=== PATIENT | male | born 1985 | race Caucasian/White ===

== ENCOUNTER 2019-06-04 19:57 | Emergency (ER) | payer SELFPAY ==
[2019-06-04 20:11] VITALS: BP 131/74
[2019-06-04] MEDS ORDERED: Tobramycin 0.3% OPHTH.SOL* 5 ML BOT (regular eye drops) BOTH EYES ONE ×2 (20:25→20:35)
[2019-06-04] MEDS ORDERED: predniSONE TAB* 20 MG PO ONE (20:25)
[2019-06-04] MEDS ORDERED: Azithromycin TAB* 250 MG PO ONE (20:26)
--- NOTE | 2019-06-04 20:29 | UC ---
Eye Complaint HPI - HPI Summary HPI Summary: 34-year-old male comes in with a chief complaint of bilateral eye redness and irritation and crusting. Been going on for about 2 weeks. He does have some rhinorrhea with green rhinorrhea. Some chest congestion. Does have a history of allergy to cats and he has been around cats last 2 weeks. He has been using [id number] antihistamines with very little relief. No fevers or chills. - History of Current Complaint Chief Complaint: UCEye Stated Complaint: EYE IRRITATION Time Seen by Provider: 06/04/19 20:19 Pain Intensity: 3 - Allergies/Home Medications Allergies/Adverse Reactions: Allergies Allergy/AdvReac Type Severity Reaction Status Date / Time cat dander Allergy RESPIRATORY Verified 06/04/19 20:11 DIFFICULTY nut - unspecified Allergy Anaphylatic Verified 06/04/19 20:11 Shock Penicillins Allergy Anaphylatic Verified 06/04/19 20:11 Shock Home Medications: Home Medications Cetirizine* [ZyrTEC 10 MG TAB*] 10 mg PO DAILY PRN 06/04/19 [History Confirmed 06/04/19] Fexofenadine (NF) [Irina (NF)] 60 mg PO PRN 06/04/19 [History] LoraTADine TAB(NF) [Claritin 10 MG TAB(NF)] 10 mg PO DAILY PRN 06/04/19 [ History Confirmed 06/04/19] PMH/Surg Hx/FS Hx/Imm Hx Previously Healthy: Yes - Surgical History Surgical History: Yes Surgery Procedure, Year, and Place: ORAL SURGERY - Family History Known Family History: Positive: Non-Contributory - Social History Alcohol Use: None Substance Use Type: None Smoking Status (MU): Current Some Day Smoker Review of Systems All Other Systems Reviewed And Are Negative: Yes Constitutional: Positive: Negative Skin: Positive: Negative Eyes: Positive: Drainage, Eye Redness ENT: Positive: Nasal Discharge, Sinus Congestion Respiratory: Positive: Other - SEE HPI Cardiovascular: Positive: Negative Gastrointestinal: Positive: Negative Motor: Positive: Negative Neurovascular: Positive: Negative Musculoskeletal: Positive: Negative Neurological: Positive: Negative Psychological: Positive: Negative Is Patient Immunocompromised?: No Physical Exam Triage Information Reviewed: Yes Appearance: No Pain Distress, Well-Nourished, Ill-Appearing - MILD Vital Signs: Initial Vital Signs Temp 98.1 F 06/04/19 20:08 Pulse 72 06/04/19 20:08 Resp 16 06/04/19 20:08 BP 131/74 06/04/19 20:08 Pulse Ox 97 06/04/19 20:08 Vital Signs Reviewed: Yes Eyes: Positive: Conjunctiva Inflamed, Discharge, Other: - PERRLA EOMI. There is crusting on the eyelids. ENT: Positive: Pharyngeal erythema, Nasal congestion, Nasal drainage, TMs normal Neck: Positive: Supple Respiratory: Positive: Lungs clear, Normal breath sounds, No respiratory distress Cardiovascular: Positive: RRR Musculoskeletal: Positive: Strength Intact, ROM Intact Neurological: Positive: Alert, Muscle Tone Normal Skin Exam: Normal Eye Complaint Course/Dx - Course Course Of Treatment: Allergic versus infectious conjunctivitis bilaterally. Patient's going to continue the antihistamines. Also starting tobramycin. Patient's allergic to penicillins we'll treat his sinusitis with an antibiotic he tells me that azithromycin has helped in the past. Also planning on a Medrol Dosepak for the possibility of allergic conjunctivitis. Patient also needs to decrease contact with cats as he is allergic to cats. Follow-up with primary care doctor. Reevaluated sooner if worse or any questions or concerns. - Differential Dx/Diagnosis Provider Diagnosis: Conjunctivitis, Sinusitis Discharge ED - Sign-Out/Discharge Documenting (check all that apply): Patient Departure All imaging exams completed and their final reports reviewed: No Studies - Discharge Plan Condition: Stable Disposition: HOME Prescriptions: Azithromycin 250 mg PO DAILY #4 tablet methylPREDNISolone [Medrol Dosepak 4 MG*] 0 mg PO .SEE JOSE INSTRUCTION #1 jose Patient Education Materials: Sinusitis (ED), Conjunctivitis (ED) Referrals: [facility] [Outside] Additional Instructions: FOLLOW UP WITH YOUR DOCTOR IF NOT COMPLETELY IMPROVED. GET RECHECKED SOONER IF YOUR CONDITION WORSENS OR ANY QUESTIONS OR CONCERNS. - Billing Disposition and Condition Condition: STABLE Disposition: Home
== END 2019-06-04 20:50 | disposition home or self-care (01) ==
LOC: UCEAST 19:57
DX: H10.9 Unspecified conjunctivitis (principal); J32.9 Chronic sinusitis, unspecified; F17.210 Nicotine dependence, cigarettes, uncomplicated; Z88.0 Allergy status to penicillin
CPT/HCPCS: 99213; A9270-GY; G0463; J7512

== ENCOUNTER 2019-07-14 18:17 | Emergency (ER) | payer SELFPAY ==
[2019-07-14 18:55] VITALS: BP 127/77
--- NOTE | 2019-07-14 20:00 | UC ---
Skin Complaint HPI - HPI Summary HPI Summary: 34 yo male with facial and neck pustules x 4-5 days draining pus intermittently no fever no hx of MRSA was incarcerated recently - History of Current Complaint Chief Complaint: UCSkin Time Seen by Provider: 07/14/19 19:46 Stated Complaint: INFECTIONS IN THE FACE Hx Obtained From: Patient Onset/Duration: Gradual Onset, Lasting Days Timing: Constant Onset Severity: Mild Current Severity: Moderate Pain Intensity: 3 Pain Scale Used: 0-10 Numeric Location: Face, Other - neck Character: Swelling, Pain, Raised Aggravating Factor(s): Touch Alleviating Factor(s): Nothing Associated Signs & Symptoms: Positive: Negative - Allergy/Home Medications Allergies/Adverse Reactions: Allergies Allergy/AdvReac Type Severity Reaction Status Date / Time cat dander Allergy RESPIRATORY Verified 07/14/19 18:55 DIFFICULTY nut - unspecified Allergy Anaphylatic Verified 07/14/19 18:55 Shock Penicillins Allergy Anaphylatic Verified 07/14/19 18:55 Shock Home Medications: Home Medications Ibuprofen TAB* [Advil TAB*] 800 mg PO Q8H PRN 07/14/19 [History Confirmed ] PMH/Surg Hx/FS Hx/Imm Hx Previously Healthy: Yes - Surgical History Surgical History: Yes Surgery Procedure, Year, and Place: ORAL SURGERY - Family History Known Family History: Positive: Non-Contributory - Social History Alcohol Use: Occasionally Substance Use Type: Marijuana Smoking Status (MU): Current Some Day Smoker Review of Systems All Other Systems Reviewed And Are Negative: Yes Constitutional: Positive: Negative Skin: Positive: Negative Eyes: Positive: Negative ENT: Positive: Negative Respiratory: Positive: Negative Cardiovascular: Positive: Negative Gastrointestinal: Positive: Negative Genitourinary: Positive: Negative Motor: Positive: Negative Neurovascular: Positive: Negative Musculoskeletal: Positive: Negative Neurological: Positive: Negative Psychological: Positive: Negative Physical Exam Triage Information Reviewed: Yes Appearance: Well-Appearing, No Pain Distress, Well-Nourished Vital Signs: Initial Vital Signs Temp 99.3 F 07/14/19 18:52 Pulse 91 07/14/19 18:52 Resp 18 07/14/19 18:52 BP 127/77 07/14/19 18:52 Pulse Ox 98 07/14/19 18:52 Vital Signs Reviewed: Yes Eyes: Positive: Conjunctiva Clear ENT: Positive: Hearing grossly normal. Negative: Nasal congestion, Nasal drainage, Tonsillar swelling, Tonsillar exudate, Hoarse voice Dental Exam: Normal Neck: Positive: Supple, Nontender, No Lymphadenopathy Respiratory: Positive: Lungs clear, Normal breath sounds, No respiratory distress Cardiovascular: Positive: RRR, No Murmur Musculoskeletal: Positive: ROM Intact, No Edema Neurological: Positive: Alert Skin Exam: Other - 12 pustules on face/neck, no cellulitis, non flucuant Course/Dx - Diagnoses Provider Diagnosis: Pustules determined by examination Discharge ED - Sign-Out/Discharge Documenting (check all that apply): Patient Departure All imaging exams completed and their final reports reviewed: No Studies - Discharge Plan Condition: Stable Disposition: HOME Prescriptions: DOXYcycline CAP(*) [DOXYcycline 100MG CAP(*)] 100 mg PO BID #20 cap Patient Education Materials: Abscess (ED) Additional Instructions: warm facial compresses, don't squeeze a culture is pending recheck for new or worsening symptoms recheck in 3 days if not improved - Billing Disposition and Condition Condition: STABLE Disposition: Home
--- NOTE | 2019-07-16 16:10 | UC ---
- Progress Note Progress Note: + MRSA on culture. Rx doxy, which should give adequate coverage. Call to ensure that the infection is responding. Sensitivity is pending. Course/Dx - Diagnoses Provider Diagnoses: Pustules determined by examination Discharge ED - Sign-Out/Discharge Documenting (check all that apply): Post-Discharge Follow Up All imaging exams completed and their final reports reviewed: No Studies - Discharge Plan Condition: Stable Disposition: HOME Prescriptions: DOXYcycline CAP(*) [DOXYcycline 100MG CAP(*)] 100 mg PO BID #20 cap Patient Education Materials: Abscess (ED) Referrals: No Primary Care Phys,NOPCP [Primary Care Provider] - Additional Instructions: warm facial compresses, don't squeeze a culture is pending recheck for new or worsening symptoms recheck in 3 days if not improved - Billing Disposition and Condition Condition: STABLE Disposition: Home
== END 2019-07-14 20:13 | disposition home or self-care (01) ==
LOC: UCEAST 18:17
DX: L08.9 Local infection of the skin and subcutaneous tissue, unspecified (principal); B95.62 Methicillin resistant Staphylococcus aureus infection as the cause of diseases classified elsewhere; F17.200 Nicotine dependence, unspecified, uncomplicated; Z91.09 Other allergy status, other than to drugs and biological substances; Z88.0 Allergy status to penicillin; Z91.018 Allergy to other foods
CPT/HCPCS: 87070; 87077; 87186; 87205; 87640; 87641; 99212; G0463